=== PATIENT | male | born 1955 | race Two or more races ===

== ENCOUNTER 2022-03-04 12:00 | Inpatient (IN) | payer OTHER ==
[~2022-03-04] VITALS: Ht 170.2 cm; Wt 75.3 kg
[~2022-03-04 12:00] MED LIST: CIPRO750 MG PO; CLONAZEPAM1 MG PO; DOCUSATE SODIU100 MG PO; METHYLPRED4 MG/DOSE- PO; NEURONTIN PO; PERCOCET 5/3251 TAB PO
[2022-03-04] MEDS ORDERED: AVAPRO150 MG PO (14:02)
[2022-03-04] MEDS ORDERED: TAMS0.4C PO (14:02)
[2022-03-04] MEDS ORDERED: ZOLOFT50 MG PO (14:02)
[2022-03-04] MEDS ORDERED: FENOFIB PO (14:03)
[2022-03-08] MEDS ORDERED: COLACE100 MG PO (07:27)
[2022-03-08] MEDS ORDERED: MEDROLPACK PO (07:27)
[2022-03-08] MEDS ORDERED: PERCOCET 5-3251 EACH PO (07:27)
== END 2022-03-09 13:08 | disposition home or self-care (01) | DRG 473 ==
LOC: O/R 03-08 05:30 → PED 03-08 05:30 → SURG 03-08 07:00 → PED 03-08 13:49
PROVIDERS: ADMIT Orthopaedic Surgery Orthopaedic Surgery of the Spine; ATTEND Orthopaedic Surgery Orthopaedic Surgery of the Spine
PROC: 0RT30ZZ Resection of Cervical Vertebral Disc, Open Approach (ICD-10-PCS; 2022-03-08)
PROC: 07DS0ZZ Extraction of Vertebral Bone Marrow, Open Approach (ICD-10-PCS; 2022-03-08)
PROC: 0RG10A0 Fusion of Cervical Vertebral Joint with Interbody Fusion Device, Anterior Approach, Anterior Column, Open Approach (ICD-10-PCS; principal; 2022-03-08 07:00)
DX: M50.01 Cervical disc disorder with myelopathy, high cervical region (principal); M48.02 Spinal stenosis, cervical region

== ENCOUNTER 2022-12-08 11:45 | Inpatient (IN) | payer OTHER ==
[~2022-12-08] VITALS: Ht 170.2 cm; Wt 73.0 kg
[~2022-12-08 11:45] MED LIST changes: +AVAPRO150 MG PO; +COLACE100 MG PO; +FENOFIB PO; +MEDROLPACK PO; +PERCOCET 5-3251 EACH PO; +TAMS0.4C PO; +ZOLOFT50 MG PO
[2022-12-15] MEDS ORDERED: PERCOCET 5-3251 EACH PO (11:16)
[2022-12-15] MEDS ORDERED: GABAPENTIN100 M2 PO (11:17)
[2022-12-15] MEDS ORDERED: AMOX-CLAV 875-1 EACH PO (11:17)
[2022-12-15] MEDS ORDERED: COLACE100 MG PO (11:17)
[2022-12-15] MEDS ORDERED: MEDROLPACK PO (11:17)
[2022-12-15] MEDS ORDERED: NEURONTIN800 MG PO (11:18)
[2022-12-16 11:47] LABS: HEMATOCRIT 32.3 % (39.0-48.0); HEMOGLOBIN 11.1 g/dL (13-16.00); MEAN CELL VOLUME 92.7 fL (80.0-100.00); MEAN CORPUSCULAR HEMOGLOBIN 31.7 pg (27.00-32.0); MEAN CORPUSCULAR HGB CONC 34.2 g/dl (32.0-36.0); PLATELET COUNT 195 K/uL (150-450); RED BLOOD COUNT 3.49 M/uL (4.00-6.00); RED CELL DISTRIBUTION WIDTH 13.4 % (11.5-14.5)
[2022-12-16 12:31] LABS: ALBUMIN 3.6 gm/dL (3.4-5.0); BILIRUBIN TOTAL 0.45 mg/dL (0.3-1.2); CALCIUM 8.3 mg/dL (8.5-10.1); CREATININE SERUM 1.64 mg/dL (0.70-1.30); GFR 42.37; GLOBULINA 2.6 G/DL (2.4-3.5); POTASSIUM 4.74 mEq/L (3.5-5.1); TOTAL PROTEIN 6.2 gm/dL (6.4-8.2)
== END 2022-12-17 10:05 | disposition home or self-care (01) | DRG 455 ==
LOC: SURH 12-15 06:45 → O/R 12-15 06:45 → SURG 12-15 11:45 → SURH 12-16 03:07
PROVIDERS: ADMIT Orthopaedic Surgery Orthopaedic Surgery of the Spine; ATTEND Orthopaedic Surgery Orthopaedic Surgery of the Spine
PROC: XRGB0R7 Fusion of Lumbar Vertebral Joint using Custom-Made Anatomically Designed Interbody Fusion Device, Open Approach, New Technology Group 7 (ICD-10-PCS; 2022-12-15)
PROC: XRGD0R7 Fusion of Lumbosacral Joint using Custom-Made Anatomically Designed Interbody Fusion Device, Open Approach, New Technology Group 7 (ICD-10-PCS; 2022-12-15)
PROC: 0SG3071 Fusion of Lumbosacral Joint with Autologous Tissue Substitute, Posterior Approach, Posterior Column, Open Approach (ICD-10-PCS; 2022-12-15)
PROC: 0ST20ZZ Resection of Lumbar Vertebral Disc, Open Approach (ICD-10-PCS; 2022-12-15)
PROC: 0ST40ZZ Resection of Lumbosacral Disc, Open Approach (ICD-10-PCS; 2022-12-15)
PROC: 0QB30ZZ Excision of Left Pelvic Bone, Open Approach (ICD-10-PCS; 2022-12-15)
PROC: 07DR0ZZ Extraction of Iliac Bone Marrow, Open Approach (ICD-10-PCS; 2022-12-15)
PROC: 4A1104G Monitoring of Peripheral Nervous Electrical Activity, Intraoperative, Open Approach (ICD-10-PCS; 2022-12-15)
PROC: 4A12X4Z Monitoring of Cardiac Electrical Activity, External Approach (ICD-10-PCS; 2022-12-15)
PROC: 0SG0071 Fusion of Lumbar Vertebral Joint with Autologous Tissue Substitute, Posterior Approach, Posterior Column, Open Approach (ICD-10-PCS; principal; 2022-12-15 16:30)
DX: M48.062 Spinal stenosis, lumbar region with neurogenic claudication (principal); M48.07 Spinal stenosis, lumbosacral region; M51.36 Other intervertebral disc degeneration, lumbar region; M43.17 Spondylolisthesis, lumbosacral region; I10 Essential (primary) hypertension